=== PATIENT | male | born 1945 | race Caucasian/White ===

== ENCOUNTER → 2017-10-18 11:09 | Outpatient (CLI) | payer MEDICARE, OTHER, SELFPAY ==
--- NOTE | 2017-10-18 | DI.CT.S_ITS ---
PROCEDURE: CT ABDOMEN PELVIS WO/W CON INDICATIONS: GROSS HEMATURIA TECHNIQUE: Optional 5 mm thick noncontrast images acquired from the diaphragm to the symphysis pubis. After the administration of intravenous contrast, 5 mm thick images acquired from the diaphragm to the symphysis pubis after a 10-minute delay. 2 mm thick coronal and sagittal reformats were then performed of the kidneys and ureters. For radiation dose reduction, the following was used: automated exposure control, adjustment of mA and/or kV according to patient size. COMPARISON: 08/13/2015. FINDINGS: Image quality: Excellent. Lung bases: Lung bases are clear. Heart size is normal. Urinary system: Both kidneys are normal in size, without hydronephrosis on pre-contrast images. There is a 2 mm nonobstructing right renal calculus. Multiple bilateral renal cysts. No solid renal masses. No perinephric fat stranding. There is normal bilateral renal enhancement. Renal calyces appear normal in morphology when filled with contrast. Opacified portions of both ureters demonstrate normal caliber. Please note the left ureter opacifies very poorly and significant portion is not evaluated. Evaluation of the bladder is significantly degraded by streak artifact from total arthroplasty. Grossly there is a mass visible in the posterior aspect of the bladder which may represent an enlarged prostate. The prostate itself is enlarged with a 1.7 cm right paracentral circumscribed area of low density. Other solid organs: There are multiple low-density hepatic nodules the largest of which measures 1.8 CM in the posterior right lobe liver minimally changed since the 2016 study. Remaining nodules are stable. Gallbladder is present. Mild intrahepatic biliary ductal dilatation greatest in the left lobe of liver stable since the previous study with no obstructing lesions identified. Pancreas and spleen are normal. Normal adrenal glands are Peritoneum and bowel: Colonic diverticulosis with no evidence of acute diverticulitis or the cecum is in the right upper quadrant. Normal appendix. Bowel loops demonstrate normal wall thickness and caliber. No free fluid or air. Nodes and vessels: No retroperitoneal or mesenteric adenopathy by size criteria. Aorta and inferior vena cava are normal in size. Abdominal wall: No ventral hernias. Multiple serpiginous structures in the right inguinal region most consistent with varices. Pelvis: No pathologic free pelvic fluid. No inguinal hernias or adenopathy. Bones: No suspicious bony lesions. No vertebral body compression fractures. Osteopenia. Bilateral total hip arthroplasties. IMPRESSION: No filling defects in visualized portions of the ureters or renal pelves to suggest a mass. No evidence of stricture. Please note left ureter opacifies poorly and is not evaluated in several portions. Nonobstructing 2 mm right renal calculus. Mass in or adjacent to the posterior aspect of the bladder is most consistent with an enlarged prostate although streak artifact from the patient's bilateral total hip arthroplasties degrades evaluation of the pelvis. There is a right paracentral area of increased density in the prostate which may represent a small cyst or less likely ureteral diverticulum. Dictated by: Hilario Norwood M.D. on 10/18/2017 at 13:44 Approved by: Hilario Norwood M.D. on 10/18/2017 at 14:05
== END ==
PROVIDERS: Family Provider Family Medicine; PCP Family Medicine; Visit Provider Urology
DX: R31.0 Gross hematuria (principal); N20.0 Calculus of kidney
CPT/HCPCS: 74178; Q9967

== ENCOUNTER → 2022-12-20 16:19 | Outpatient (CLI) | payer MEDICARE, SELFPAY ==
[2022-12-20 17:50] LABS: Add Manual Diff / Slide Review NO; Basophils Absolute Auto 0 /uL (0-100); Basophils Percent Auto 0.9 % (0-2); Eosinophils Absolute Auto 0 /uL (0-450); Hematocrit 37.3 % (41-53); Hemoglobin 12.8 g/dL (13.5-17.5); Lymphocytes Absolute Auto 1300 /uL (1100-4500); Lymphocytes Percent Auto 27.3 % (25-40); Mean Corpuscular HGB Conc 34.3 % (30-36); Mean Corpuscular Hemoglobin 31.2 PG (26-34); Mean Corpuscular Volume 90.9 fL (80-100); Monocytes Absolute Auto 400 /uL (0-900); Monocytes Percent Auto 8.9 % (3-14); Neutrophils Absolute Auto 3000 /uL (1500-7000); Neutrophils Percent Auto 61.9 % (50-75); Platelet Count 186 X10^3/uL (150-400); Red Cell Distribution Width 13.9 % (11.6-14.8); White Blood Cell Count 4.8 X10^3/uL (4.5-11.0)
[2022-12-20 18:10] LABS: Alanine Aminotransferase 45 IU/L (<50); Albumin 4.1 g/dL (3.5-5.0); Albumin Globulin Ratio 1.4 (1.0-2.8); Alkaline Phosphatase 43 U/L (38-126); Aspartate Aminotransferase 42 IU/L (17-59); BUN Creatinine Ratio 23.7 (6-22); Bilirubin Total 0.5 mg/dL (0.2-1.3); Blood Urea Nitrogen 22 mg/dL (9-20); C-Reactive Protein Quant < 0.5 mg/dL (<1.0); Calcium 9.3 mg/dL (8.4-10.2); Carbon Dioxide 31 mmol/L (22-32); Chloride 103 mmol/L (98-107); Erythrocyte Sedimentation Rate 5 MM/HR (0-15); Estimated Glomerular Filt Rate > 60 mL/min (>60); Globulin 2.9 g/dL (1.7-4.1); Glucose 95 mg/dL (80-110); HEMOLYSIS < 15 (0-50); Potassium 3.7 mmol/L (3.4-5.1); Sodium 139 mmol/L (137-145)
[2022-12-22 14:19] LABS: Hepatitis B Surface Antigen NEGATIVE s/c (NEGATIVE)
[2022-12-22 14:36] LABS: Hep C Virus Ab w/Reflex Quant NEGATIVE s/c (NEGATIVE)
[2022-12-22 16:10] LABS: QuantiFERON Mitogen Value 6.21 IU/mL (.); QuantiFERON TB Gold Plus Negative (Negative); QuantiFERON TB1 Ag Value 0.01 IU/mL (.); QuantiFERON TB2 Ag Value 0.02 IU/mL (.)
== END ==
PROVIDERS: Family Provider Family Medicine; PCP Family Medicine; Referring Provider Internal Medicine Rheumatology; Visit Provider Internal Medicine Rheumatology
DX: M45.7 Ankylosing spondylitis of lumbosacral region (principal); Z79.899 Other long term (current) drug therapy
CPT/HCPCS: 36415; 80053; 85025; 85651; 86140; 86480; 86803; 87340

== ENCOUNTER 2023-04-05 07:43 | Day surgery (SDC) | payer MEDICARE, SELFPAY ==
[2023-04-03 10:38] VITALS: BMI 24.3
[2023-04-05] VITALS (8 sets, daily range): BP systolic 101–153; BP diastolic 62–68; PULSE 58–87; RESP 12–16; TEMP 36.4–37; O2SAT 93–100; BMI 24.3
[2023-04-05] MEDS: LACTATED RINGERS 1,000 ML 42 ML IV (08:08)
--- NOTE | 2023-04-05 08:10 | PM.PREOP ---
Pre-operative Note Interval Note History & Physical reviewed/Exam performed by Physician: Yes Changes to H&P: No
--- NOTE | 2023-04-05 08:11 | P.OP_ITS ---
Operative Date/Time/Diagnoses Date of procedure: 04/05/23 Time of procedure: 08:11 Pre-op diagnosis: Left hallux valgus with bunion and hammertoes Post-op diagnosis: same Procedure & Clinicians Procedure: 1. Left bunionectomy with distal metatarsal osteotomy 2. Left hallux proximal phalangeal osteotomy 3. Second, third, and fourth proximal and distal interphalangeal joint arthrodeses left foot toes 4. Left second and third metatarsal osteotomies 5. Left fifth proximal interphalangeal joint arthroplasty Same procedure as scheduled: Yes Indications: 77 yo male with ongoing painful bunion and hammertoes on the left foot. Conservative measures failed to alleviate his pain and he wished to have surgical intervention at this time. We discussed the risks, potential complications, alternatives, expected outcomes. Consent is reviewed, no contraindications to the procedure at this time. Of note, he was about 60-75 minutes [place] Surgeon: More Connolly Click Yes if Unassisted: Yes Anesthesia Type: General Operative Notes Closure Type: primary Specimen(s): none sent Prosthetic devices, grafts, tissues, transplants, or devices: [place] 2.0 cannulated screws (4), 0.045 k-wire (3), JAWS Nitinol Staple, 4-0 Ticron Estimated Blood Loss (mL): 50 Blood products transfused: none Tourniquet time (min): 112 Procedure in detail: The patient was brought to the operating room and placed on the operating table in the supine position. Tourniquet was placed about the left thigh. Well padded, appropriately aligned. After induction of general anesthesia the left foot and ankle were prepped and draped in the usual aseptic manner. The tourniquet was inflated. 1. Incision was made over the 1st metatarsal phalangeal joint. The incision was deepened through subcutaneous tissues being careful to identify and retract all vital neurovascular structures. All bleeders were cauterized and ligated as necessary. A medial capsulotomy was performed to the 1st MTPJ exposing the enlarged medial eminence. Of note the metatarsal head showed some linear wearing of cartilage surface. Through the same incision a lateral release at the first metatarsophalangeal joint was performed. Due to adhesions, a McGlamry scoop was used to release these plantar to the first metatarsal head. The saw was used to resect the medial eminence of first metatarsal head. A saw was used to create a chevron-type osteotomy medial to lateral across the first metatarsal head/neck. The head was shifted and respositioned to reduce the intermetatarsal angle. Temporary fixation was used and using standard AO technique, following drilling, a 2.0 cortical screw was placed across the osteotomy. It was at this point we noted the softer nature of his bone and small bone cyst medial to central along the first metatarsal head that appeared to be related to pressure point from the chronic bunion. Temporary fixation was then removed. This was reviewed on C-arm showing good placement and closure of the osteotomy. A second screw was placed as well in the same manner. There was not as much angular correction available as I would have desired due to the small surface of workable bone available and osteopenic changes. A saw was used to revise the medial first metatarsal shaft redundant overhang. The area was irrigated with copious amounts normal sterile saline. 2. Once this was loaded it would appear that due to the continued drift of the hallux, decision was made to perform a phalangeal osteotomy of the hallux. Dissection was carried down and reflecting the extensor away from the proximal phalanx centrally, a saw was used to remove a triangular portion of bone with the apex medially. This was gently closed down to allow for straightening and justification of the great toe. The area was irrigated with copious amounts normal sterile saline. Using standard technique a bone staple was used, this was placed dorsally and under good tension. This closed down the osteotomy with good strength and coaptation. The great toe was put through range of motion and no crepitus was noted. Upon loading the foot alignment was good of the great toe but still with tension along the extensor hallucis tendon. The extensor hallucis tendon was lengthened using a distal and proximal half cut, with a linear central vertical cut which allowed for a slide of the tendon. When out at appropriate length, the tendon was repaired using 4-0 Ticron. Due to the friable nature of his tissue, the medial capsule of the great toe joint was repaired rather than excised and repaired. It was repaired in corrected alignmen t which it appeared to maintain. 3 & 4. Incision was made over the second distal and proximal interphalangeal joints dorsally. The incision was deepened through subcutaneous tissues being careful to identify and retract all vital neural and vascular structures. All bleeders were cauterized and ligated as necessary. A transection of the extensor tendon at the proximal and distal interphalangeal joints was performed. A saw was used to resect the base of the distal phalanx and the head of the intermediate phalanx, the base of the intermediate phalanx and the head of the proximal phalanx. The areas were irrigated with normal saline. Upon loading the forefoot, the second toe was still fairly contracted dorsally at the metatarsal head, so after a capsulotomy and extensor tendon lengthening, the decision was made to perform a metatarsal osteotomy. A saw was used to create an osteotomy across the dorsal second metatarsal going proximal just past the neck. The head was shifted proximally to shorten the bone. Temporary fixation was used to stabilize it and a 2.0 screw using standard AO techniques was used over the guide wire. Wire removed, it was in good alignment and purchase. Once again, noting the bone to be softer in this area. Excess metatarsal head cartilage overhang distally was gently removed. Due to the timing, the tourniquet was deflated, a prompt hyperemic response was seen to the foot. Under the aid of mini C-arm, a 0.045 k-wire was placed in the base of the intermediate phalanx and out the distal tip of the toe. This was retrograded back across the proximal phalanx. This closed down well and k-wire was checked for placement under mini C-arm in all three planes. Excess distal wire was removed after careful bending as it exited the toe, and pin cap was placed. The extensor tendon was repaired at new length proximally using Ticron and distally using Vicryl. 5 & 6.The same procedures were performed to the toe and metatarsal number three. 7. The same procedure was performed to toe number four, however the metatatarsal osteotomy portion was not performed. 8. For the fifth toe, two converging semi-elliptical incisions were made over the dorsolateral proximal interphalangeal joint. Incisions were deepened through subcutaneous tissues being careful to identify and retract all vital neurovascular structures. All bleeders were cauterized as necessary. The extensor was transected over the proximal interphalangeal joint. The proximal phalanx head was exposed and a saw was used to resect this. A manual rasp was used to gently reduce some of the lingering spurring over the base of the intermediate phalanx. The area was irrigated with normal saline. The extensor tendon was repaired using 4-0 Vicryl. Final mini c-arm pictures were taken in all three planes. Saline irrigation performed. Subcutaneous closure for each of the incisions was performed using Vicryl. Nylon was used to close the skin. The tips of toes where wires were exiting we re dressed with triple antibiotic ointment. A lightly compressive dressing was placed on the foot and he was placed in stockinette and postsurgical boot and transferred to the PACU with vital signs stable. Complications: none Post-operative Condition: stable Disposition: PACU Plan for aftercare: Following a period of postoperative monitoring, the patient will be discharged to home on written and oral postoperative instructions including keeping the dressing dry and intact, no weight to the surgical foot, icing and elevating the foot when seated home. DVT prevention techniques have been reviewed. For the 1st postoperative visit the dressing will be changed and close to the 4th postoperative week we will likely perform the first x-rays
[2023-04-05] MEDS: CLINDAMYCIN 600 MG/50 ML PIGGYBACK 50 MG IV (08:41)
--- NOTE | 2023-04-05 09:23 | SUR.OPER ---
Supine on padded OR bed, head on pillow, arms secured on padded arm boards at <90 degrees abduction, legs uncrossed, safety belt at thigh, tape over blanket over lower left leg right leg draped free with gel bump under left hip.
[2023-04-05] MEDS: BUPIVACAINE 0.5% (PF) 10 ML VIAL 20 ML INJ (09:58)
[2023-04-05] MEDS: BACITRACIN OINT 0.9 GM PCKT 1 APPLIC TOP (11:29)
[2023-04-05] MEDS: OXYCODONE IR 5 MG TABLET PO ×2 (13:26→14:00)
[2023-04-05] MEDS: hydrOXYzine 50 MG/ML INJ 25 MG IM (13:36)
== END 2023-04-05 14:27 | disposition home or self-care (01) ==
PROVIDERS: Family Provider Family Medicine; PCP Family Medicine; Referring Provider Podiatrist; Visit Provider Podiatrist
PROC: 0QBP0ZZ Excision of Left Metatarsal, Open Approach (ICD-10-PCS; CPT 28292; principal; 2023-04-05 07:45)
DX: M20.12 Hallux valgus (acquired), left foot (principal); M20.42 Other hammer toe(s) (acquired), left foot; M79.672 Pain in left foot
CPT/HCPCS: 28299; 28308 ×2; 28285 ×3; 28160; J1100; J2405; J2704; J3010; J3410

== ENCOUNTER → 2024-11-28 10:37 | Outpatient (CLI) | payer MEDICARE, SELFPAY ==
[2024-11-28 11:11] LABS: Add Manual Diff / Slide Review NO; Hematocrit 39.6 % (41-53); Hemoglobin 13.4 g/dL (13.5-17.5); Lymphocytes Absolute Auto 1400 /uL (1100-4500); Mean Corpuscular HGB Conc 33.9 % (30-36); Mean Corpuscular Hemoglobin 32.1 PG (26-34); Mean Corpuscular Volume 94.7 fL (80-100); Platelet Count 206 X10^3/uL (150-400)
[2024-11-28 11:32] LABS: Alanine Aminotransferase 18 IU/L (<50); Albumin 4.1 g/dL (3.5-5.0); Albumin Globulin Ratio 1.5 (1.0-2.8); Alkaline Phosphatase 49 U/L (38-126); Blood Urea Nitrogen 16 mg/dL (9-20); Calcium 9.3 mg/dL (8.4-10.2); Carbon Dioxide 29 mmol/L (22-32); Chloride 105 mmol/L (98-107); Estimated Glomerular Filt Rate > 60 mL/min (>60); Globulin 2.8 g/dL (1.7-4.1); Glucose 98 mg/dL (70-99); HEMOLYSIS < 15 (0-50); Potassium 4.5 mmol/L (3.4-5.1); Sodium 139 mmol/L (137-145); Total Protein 6.9 g/dL (6.3-8.2)
== END ==
PROVIDERS: Family Provider Family Medicine; PCP Family Medicine; Referring Provider Family Medicine; Visit Provider Internal Medicine Rheumatology
DX: Z79.899 Other long term (current) drug therapy (principal)
CPT/HCPCS: 36415; 80053; 85025

== ENCOUNTER 2025-01-06 11:05 | Day surgery (SDC) | payer MEDICARE, OTHER, SELFPAY ==
[2025-01-06] VITALS (7 sets, daily range): BP systolic 110–148; BP diastolic 53–80; PULSE 47–60; RESP 15–18; TEMP 36.1–36.2; O2SAT 98–99
--- NOTE | 2025-01-06 | PATH_ITS ---
[facility] Accession Number: [id number] No. of containers..04 Tissue . 01 Material submitted: . PART A: duodenum - DUODENUM PART B: stomach - ANTRUM PART C: gastrointestinal site - GASTRIC POLYP GREATER CURVATURE OF STOMACH PART D: colon - SIGMOID POYLP . 01 Clinical history: . B: R/O H PYLORI . 01 Diagnosis: Part A: DUODENUM: Duodenal mucosa with no diagnostic alterations. No active inflammation and no evidence of celiac disease. . Part B: ANTRUM: Gastric mucosa with minimal chronic inflammation. No Helicobacter organisms identified. No intestinal metaplasia, dysplasia, or malignancy identified. . Part C: GASTRIC POLYP GREATER CURVATURE OF STOMACH: Gastric hyperplastic polyp, with mild chronic inflammation and focal ulceration. Focal mild gland atypia; favor reactive. No Helicobacter organisms identified. No intestinal metaplasia, dysplasia, or malignancy identified. . Specimen Comments: Focal mild gland atypia with mild gland dilation is seen in the body of the gastric polyp, underling a focal ulcer. No significant cytologic atypia is seen. The features are favored to represent a reactive change. . This case has also been reviewed by Dr. Marcy Jackman, who concurs with the diagnosis. . Part D: SIGMOID POYLP: Tubular adenoma. [facility] 01/15/2025 1300 Local . 01 Comment: Parts B, C: An immunohistochemical stain was performed to evaluate for Helicobacter organisms and is negative. The control stains appropriately. * This test was developed and the performance characteristics were validated by [facility]. It has not been cleared or approved by the Food and Drug Administration. . 01 Electronically signed: . Giovanni Duran MD, Pathologist NPI- [id number] . 01 Gross description: . A. Received in formalin with two identifiers and 1. Duodenum biopsy. The specimen consists of one couch soft tissue fragment measuring 0.5 x 0.3 x 0.3 cm. The specimen is entirely submitted in cassette A1. . B. Received in formalin with two identifiers and 2. Antrum biopsy, rule out H. pylori. The specimen consists of a couch soft tissue fragment measuring 0.6 x 0.4 x 0.3 cm. The specimen is entirely submitted in cassette B1. . C. Received in formalin with two identifiers and no site on label consists of one couch-brown soft tissue fragment measuring 1.1 x 1.1 x 0.9 cm. The specimen is inked, bisected, and entirely submitted in cassette C1. . D. Received in formalin with two identifiers and 4. Sigmoid polyp. The specimen consists of one couch soft tissue fragment measuring 0.3 x 0.3 x 0.3 cm. The specimen is entirely submitted in cassette D1. ([id number]) /MRV 01/15/2025 1300 Local . 01 Pathologist provided ICD-10: D12.5, K29.30, K31.7 . 01 CPT . 168620, 849391, 997992, [id number], [id number] Specimen Comment: A courtesy copy of this report has been sent to [facility] Performed at: [address] [address], [place], [place] [id number] MD Giovanni Duran MD Phone: [phone]
--- NOTE | 2025-01-06 12:51 | PM.PREOP ---
Pre-operative Note Interval Note History & Physical reviewed/Exam performed by Physician: Yes Changes to H&P: No ASA Class (for procedural sedation): II
[2025-01-06] MEDS: LACTATED RINGERS 1,000 ML 42 ML IV (13:01)
--- NOTE | 2025-01-06 13:02 | P.OP.EGD&C_ITS ---
Operative Date/Time/Diagnoses Date of procedure: 01/06/25 Time of procedure: 14:13 Pre-op diagnosis: H/O gastric GIST resection, colon polyps, +FH colon cancer Post-op diagnosis: other (Gastric polyp, sigmoid polyp, diverticulosis) Procedure & Clinicians Study performed: EGD/colonoscopy with biopsy Same procedure(s) as scheduled: Yes Indications: 79yo M, h/o gastric GIST resection, colon polyps (tubular adenoma), +FH for colon cancer (father) Surgeon: Dru Hernandez Anesthesia Type: MAC +/- Procedure Notes SCOAP/Timeout: Performed Procedure in detail: EGD Informed consent was obtained. The procedure, its risks, benefits, and alternatives were discussed. Patient understood and agreed to proceed. The patient was placed in the left lateral decubitus position with head elevated. Sedation given per anesthesia. The video endoscope was inserted into the oropharynx and guided under direct vision into the esophagus, stomach, and duodenum which were carefully examined. The scope was retroflexed to examine the hiatus and gastroesophageal junction. Antral biopsies were obtained for Helicobacter pylori. The patient tolerated the procedure very well. There were no apparent complications. Significant EGD findings: Z-line noted at: 40cm Gastric polyp 1cm, removed with hot snare and retrieved using basket for pa thology, location midway along greater curvature Duodenitis - biopsies taken Antral gastritis, mild, biopsies taken for hpylori Colonoscopy Patient placed in left lateral recumbent position. Time out was performed. Procedural sedation was administered by anesthesia. Examination began with a thorough inspection of the perianal area. There was no evidence of fissures, fistulae, external hemorrhoids or cutaneous malignancy. The colonoscope was then placed into the rectum and the lumen was insufflated with carbon dioxide. The scope was carefully advanced forward. Ultimately the cecum was intubated and confirmed by identification of the ileocecal valve, the appendiceal orifice and the confluence of the taenia. The scope was then slowly withdrawn examining the colon thoroughly in all directions. In the rectum, retroflexion of the scope was performed for inspection of the distal rectum and anal canal. ?Significant colonoscopy findings: ?1. Quality of the preparation-good, [place] 2-3, improved with irrigation/suction ?2. Sigmoid polyp 4mm, sessile, removed with cold snare and retrieved for pathology 3. Sigmoid diverticulosis Scope withdrawal time: 15 minutes Findings: diverticulosis, gastritis and polyp Specimen(s): other (gastric polyp, sigmoid polyp) Complications: none Impression: Gastric polyp Antritis/duodenitis Sigmoid polyp Sigmoid diverticulosis Await pathology Post-procedure Recommendations: Colonscopy in 5 years Plan for aftercare: PACU then home Follow up: as needed Disposition: PACU
== END 2025-01-06 14:53 | disposition home or self-care (01) ==
PROVIDERS: Family Provider Family Medicine; PCP Family Medicine; Referring Provider Surgery; Visit Provider Surgery
PROC: 0DJD8ZZ Inspection of Lower Intestinal Tract, Via Natural or Artificial Opening Endoscopic (ICD-10-PCS; CPT 45378; principal; 2025-01-06 13:45)
PROC: 0DJ08ZZ Inspection of Upper Intestinal Tract, Via Natural or Artificial Opening Endoscopic (ICD-10-PCS; CPT 43251; 2025-01-06 13:45)
DX: Z12.11 Encounter for screening for malignant neoplasm of colon (principal); K57.30 Diverticulosis of large intestine without perforation or abscess without bleeding; Z86.0101 Personal history of adenomatous and serrated colon polyps; Z87.19 Personal history of other diseases of the digestive system; K29.50 Unspecified chronic gastritis without bleeding; K31.7 Polyp of stomach and duodenum; K63.5 Polyp of colon
CPT/HCPCS: 43251; 45385; 43239; J2704